=== PATIENT | male | born 1970 | race Caucasian/White ===

== ENCOUNTER 2017-10-03 09:53 | Day surgery (SDC) | payer MEDICAID ==
[2017-10-03 13:48] LABS: GLUCOSE CSF 185 mg/dL (41-75)
== END 2017-10-03 15:30 | disposition home or self-care (01) ==
LOC: ANGIO 09:53
PROVIDERS: ATTEND Psychiatry & Neurology Neurology
DX: G35 Multiple sclerosis (principal)
CPT/HCPCS: 62270; 77003; 82040; 82042; 82784; 82945; 83873; 83916; 84157; 89050